=== PATIENT | male | born 1990 | race Caucasian/White ===

== ENCOUNTER 2021-04-19 09:32 | Emergency (ER) | payer SELFPAY ==
[2021-04-19] MEDS ORDERED: Amoxicillin/Clavulanate K 875-125 MG Tab PO ONE (10:46)
[2021-04-19] MEDS ORDERED: Ketorolac 60 MG/2 ML SDV IM ONE (10:46)
[2021-04-19] MEDS ORDERED: Acetaminophen/Codeine 300-30 MG Tab PO ONE (10:47)
--- NOTE | 2021-04-19 10:52 | EDM.PDOC ---
ED HPI GENERAL MEDICAL PROBLEM - General Chief Complaint: ENT Problem Stated Complaint: DENTAL COMPLAINT Time Seen by Provider: 04/19/21 10:33 Source of Information: Reports: Patient, RN Notes Reviewed History Limitations: Reports: No Limitations - History of Present Illness INITIAL COMMENTS - FREE TEXT/NARRATIVE: Patient is a 31-year-old male presenting to the emergency department with complaints of right upper dental pain and swelling. Reports on Friday he had some pain in the area, however it resolved. Upon waking this morning, pain had returned and the area was swollen. Complaints of radiation pain to his ear. He took a couple pills of Augmentin yesterday that were left over from a previous treatment. Denies any fever, chills, nausea, or vomiting. He does not have a dentist, however they are working on setting up an appointment. Right Oral/Mouth Pain Score (Numeric/FACES): 9 - Related Data Allergies Allergy/AdvReac Type Severity Reaction Status Date / Time No Known Allergies Allergy Verified 04/20/21 08:25 Home Meds: Home Meds Acetaminophen/Codeine [Tylenol with Codeine No.3 300MG/30MG] 1 tab PO Q4H PRN #15 tab 04/19/21 [Rx] Amoxicillin/Clavulanate K [Augmentin 875-125 MG] 1 tab PO BID 10 Days #20 tablet 04/19/21 [Rx] Hydrocodone/Acetaminophen [Hydrocodone-Acetamin 5-325 mg] 1 - 2 each PO Q6H PRN #15 tablet 04/20/21 [Rx] Past Medical History - Past Health History Medical/Surgical History: Denies Medical/Surgical History Social & Family History - Tobacco Use Tobacco Use Status *Q: Current Every Day Tobacco User Years of Tobacco use: 15 Packs/Tins Daily: 2 - Recreational Drug Use Recreational Drug Use: Yes Drug Use in Last 12 Months: Yes Recreational Drug Type: Reports: Marijuana/Hashish Recreational Drug Use Frequency: Socially ED ROS ENT - Review of Systems Review Of Systems: Comprehensive ROS is negative, except as noted in HPI. ED EXAM, ENT - Physical Exam Exam: See Below General Appearance: Alert, WD/WN, No Apparent Distress Mouth/Throat: Dental Pain, Gum Swelling (Proximal to tooth 567. Obvious dental caries to the proximal aspect of teeth 5 6 and 7.) Neck: Normal Inspection, Supple, Non-Tender, Full Range of Motion Respiratory/Chest: No Respiratory Distress, Lungs Clear, Normal Breath Sounds, No Accessory Muscle Use, Chest Non-Tender Cardiovascular: Normal Peripheral Pulses, Regular Rate, Rhythm, No Edema, No Gallop, No JVD, No Murmur, No Rub Neurological: Alert, Oriented, CN II-XII Intact, Normal Cognition, Normal Gait, Normal Reflexes, No Motor/Sensory Deficits Psychiatric: Normal Affect, Normal Mood Skin: Warm, Dry, Intact, Normal Color, No Rash Course - Vital Signs Last Recorded V/S: Last Vital Signs Temp 97.9 F 04/19/21 10:31 Pulse 51 L 04/19/21 10:31 Resp 16 04/19/21 10:31 BP 166/120 H 04/19/21 10:31 Pulse Ox 99 04/19/21 10:31 - Orders/Labs/Meds Meds: Medications Discontinued Medications Generic Name Dose Route Start Last Admin Trade Name Agustinq PRN Reason Stop Dose Admin Acetaminophen/Codeine Phosphate 2 tab 04/19/21 10:47 04/19/21 10:56 Acetaminophen/Codeine 300-30 Mg Tab PO 04/19/21 10:48 2 tab ONETIME ONE Administration Amoxicillin/Clavulanate Potassium 1 tab 04/19/21 10:46 04/19/21 10:56 Amoxicillin/Clavulanate K 875-125 Mg Tab PO 04/19/21 10:47 1 tab ONETIME ONE Administration Ketorolac Tromethamine 60 mg 04/19/21 10:46 04/19/21 10:56 Ketorolac 60 Mg/2 Ml Sdv IM 04/19/21 10:47 60 mg ONETIME ONE Administration - Re-Assessments/Exams Free Text/Narrative Re-Assessment/Exam: Patient is a 31-year-old male presenting to the emergency department complaints of right upper dental pain and swelling. On exam, he has obvious dental caries to tooth 5 6 and 7 as well as swelling of the gums proximal to this. There is mild external swelling. He has had no fever, chills, nausea, or vomiting. Patient will be treated with Augmentin. I will give him a shot of Toradol as well as Tylenol with codeine here in the emergency department. Discussed that he must seek treatment from a dentist as infection will likely recur. I will send prescription for Tylenol with codeine as well. Discharge instructions as documented. Departure - Departure Time of Disposition: 11:07 Disposition: Home, Self-Care 01 Condition: Good Clinical Impression: Dental caries - Discharge Information *PRESCRIPTION DRUG MONITORING PROGRAM REVIEWED*: No *COPY OF PRESCRIPTION DRUG MONITORING REPORT IN PATIENT FERN: No Prescriptions: Amoxicillin/Clavulanate K [Augmentin 875-125 MG] 1 tab PO BID 10 Days #20 tablet Acetaminophen/Codeine [Tylenol with Codeine No.3 300MG/30MG] 1 tab PO Q4H PRN #15 tab PRN Reason: Pain Instructions: Dental Caries, Adult Referrals: PCP,None [Primary Care Provider] - Forms: ED Department Discharge Additional Instructions: You were seen in the emergency department today for pain and swelling to your right upper mouth. Exam indicates a likely have dental infection. While in the ER, you received your first dose of Augmentin as well as an injection of Toradol and Tylenol with codeine for pain. Prescription for Augmentin has been sent to your pharmacy. Take this as prescribed. Recommend bupropion 600 mg every 6 hours for the next few days. For pain not relieved by this, you may take a tablet of the Tylenol with codeine that was prescribed. Recommend setting up an appointment with a dentist at their next available visit. Return to ER for any new or worsening symptoms of concern.
== END 2021-04-19 11:30 | disposition home or self-care (01) ==
LOC: JD.ED 09:32
DX: K02.9 Dental caries, unspecified (principal)
CPT/HCPCS: 96372; 99282; A9270; J1885; 99283

== ENCOUNTER 2021-04-20 08:13 | Emergency (ER) | payer SELFPAY ==
[2021-04-20] MEDS ORDERED: cefTRIAXone 1 GM, Lidocaine 1% 2.1 ML IM ONE ×2 (08:46)
--- NOTE | 2021-04-20 09:00 | EDM.PDOC ---
ED HPI GENERAL MEDICAL PROBLEM - General Chief Complaint: General Stated Complaint: SEEN YESTERDAY FACE SWELLING IS WORSE Time Seen by Provider: 04/20/21 08:31 Source of Information: Reports: Patient History Limitations: Reports: No Limitations - History of Present Illness INITIAL COMMENTS - FREE TEXT/NARRATIVE: The patient presents with dental pain and right sided facial swelling. The patient said he started having some dental pain on Friday and it has gotten worse. He was seen here yesterday and given a shot of rocephin and a prescription for augmentin. The swelling and pain is worse. He was also given some tylenol or codeine for pain. He has no fever or chills. Onset: Gradual Duration: Day(s): Location: Reports: Face Quality: Reports: Sharp Severity: Severe Improves with: Reports: None Worsens with: Reports: None Associated Symptoms: Reports: No Other Symptoms Right Oral/Mouth Pain Score (Numeric/FACES): 7 - Related Data Allergies Allergy/AdvReac Type Severity Reaction Status Date / Time No Known Allergies Allergy Verified 04/20/21 08:25 Home Meds: Home Meds Acetaminophen/Codeine [Tylenol with Codeine No.3 300MG/30MG] 1 tab PO Q4H PRN #15 tab 04/19/21 [Rx] Amoxicillin/Clavulanate K [Augmentin 875-125 MG] 1 tab PO BID 10 Days #20 tablet 04/19/21 [Rx] Hydrocodone/Acetaminophen [Hydrocodone-Acetamin 5-325 mg] 1 - 2 each PO Q6H PRN #15 tablet 04/20/21 [Rx] Past Medical History - Past Health History Medical/Surgical History: Denies Medical/Surgical History Social & Family History - Tobacco Use Tobacco Use Status *Q: Current Every Day Tobacco User Years of Tobacco use: 15 Packs/Tins Daily: 2 - Caffeine Use Caffeine Use: Reports: Coffee, Energy Drinks, Soda - Recreational Drug Use Recreational Drug Use: No ED ROS GENERAL - Review of Systems Review Of Systems: See Below Constitutional: Reports: No Symptoms HEENT: Reports: Dental Pain, Other (facial swelling) Respiratory: Reports: No Symptoms Cardiovascular: Reports: No Symptoms Endocrine: Reports: No Symptoms GI/Abdominal: Reports: No Symptoms : Reports: No Symptoms Musculoskeletal: Reports: No Symptoms ED EXAM, GENERAL - Physical Exam Exam: See Below Exam Limited By: No Limitations General Appearance: Alert, No Apparent Distress Ears: Normal External Exam Nose: Normal Inspection Throat/Mouth: Other (Pain upon palpation with edema to the right upper gum line near the molars) Head: Other (right cheek swelling) Neck: Normal Inspection Respiratory/Chest: No Respiratory Distress, Lungs Clear, Normal Breath Sounds Cardiovascular: Regular Rate, Rhythm, No Edema, No Murmur GI/Abdominal: Soft, Non-Tender, No Organomegaly, No Mass Extremities: Normal Inspection Course - Vital Signs Last Recorded V/S: Last Vital Signs Temp 98.3 F 04/20/21 08:24 Pulse 83 04/20/21 08:24 Resp 18 04/20/21 08:24 BP 138/115 H 04/20/21 08:24 Pulse Ox 97 04/20/21 08:24 - Orders/Labs/Meds Meds: Medications Discontinued Medications Generic Name Dose Route Start Last Admin Trade Name Freq PRN Reason Stop Dose Admin Ceftriaxone Sodium 1 gm/ 0 gm 04/20/21 08:46 Lidocaine HCl 2.1 ml IM 04/20/21 08:47 ONETIME ONE - Re-Assessments/Exams Free Text/Narrative Re-Assessment/Exam: 04/20/21 09:01 I have ordered another shot of rocephin and I will give him something stronger for pain. Departure - Departure Time of Disposition: 09:05 Disposition: Home, Self-Care 01 Condition: Good Clinical Impression: Dental caries, Dental abscess - Discharge Information *PRESCRIPTION DRUG MONITORING PROGRAM REVIEWED*: No *COPY OF PRESCRIPTION DRUG MONITORING REPORT IN PATIENT FERN: No Prescriptions: Hydrocodone/Acetaminophen [Hydrocodone-Acetamin 5-325 mg] 1 - 2 each PO Q6H PRN #15 tablet PRN Reason: Pain Referrals: PCP,None [Primary Care Provider] - Additional Instructions: Keep taking the augmenting or antibiotic. Stop the tylenol with codeine and try the hydrocodone as needed for pain. Put warm compresses on your face 3 times per day for 4 to 5 days. Follow up with a dentist within a week. Please return if you are worse. Sepsis Event Note (ED) - Focused Exam Vital Signs: Vital Signs Temp Pulse Resp BP Pulse Ox 04/20/21 08:24 98.3 F 83 18 138/115 H 97
== END 2021-04-20 09:25 | disposition home or self-care (01) ==
LOC: JD.ED 08:13
DX: K04.7 Periapical abscess without sinus (principal); K02.9 Dental caries, unspecified; Z72.0 Tobacco use
CPT/HCPCS: 96372; 99283; J0696